=== PATIENT | female | born 1970 | race Caucasian/White ===

== ENCOUNTER → 2022-06-23 | Outpatient (CLI) | payer OTHER | LOC: COL.RAD 07:47 | DX: K76.0 Fatty (change of) liver, not elsewhere classified (principal); K31.89 Other diseases of stomach and duodenum; Z90.49 Acquired absence of other specified parts of digestive tract; Z85.43 Personal history of malignant neoplasm of ovary | CPT/HCPCS: Q9967 ==

== ENCOUNTER → 2022-12-23 | Outpatient (CLI) | payer OTHER | LOC: COL.RAD 10:52 | DX: C56.2 Malignant neoplasm of left ovary (principal) | CPT/HCPCS: J1644; Q9967 ==

== ENCOUNTER → 2024-03-24 | Outpatient (CLI) | payer OTHER ==
[~2024-03-24] MED LIST: Iohexol 300 - 100 ML VIAL IV ONE; NS 100 ML IV SCH
== END ==
LOC: COL.RAD 09:38
DX: C56.2 Malignant neoplasm of left ovary (principal)
CPT/HCPCS: Q9967